=== PATIENT | male | born 1955 | race Caucasian/White ===

== ENCOUNTER → 2017-01-15 | Outpatient (CLI) | payer OTHER | LOC: FIMAGING 15:47 | PROVIDERS: ATTEND Internal Medicine | DX: M79.661 Pain in right lower leg (principal) ==

== ENCOUNTER → 2017-05-04 | Outpatient (CLI) | payer OTHER | LOC: FIMAGING 06:56 | PROVIDERS: ATTEND Internal Medicine Hepatology | DX: Q44.6 Cystic disease of liver (principal) ==

== ENCOUNTER 2017-12-22 07:04 | Emergency (ER) | payer OTHER ==
[2017-12-22 07:48] LABS: PLATELET COUNT 178 10^3/uL (150-400)
--- NOTE | 2017-12-22 07:50 | EDPHY ---
HPI/HX/ROS/PE/MDM Narrative: CHIEF COMPLAINT: Abnormal labs HPI: The patient is a 62 y/o male post liver and kidney transplants arriving at the referral of his PCP due to abnormal labs. He saw his PCP for evaluation of a long history of the sensation of an irregular heartbeat and occasional dyspnea and had routine labs performed. He received a phone call this morning alerting him that his creatinine was 2.9 and BUN 66 and was advised to go to the ED for more lab work. He has been exercising a lot this week in the heat and went hiking on Sunday. 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 He feels mildly fatigued, but otherwise denies acute symptoms. REVIEW OF SYSTEMS: Aside from elements discussed in the HPI, a comprehensive 10-point review of systems was reviewed and is negative. 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 Employed. PCP: Dr. Russell, Wallboard Worker: Dr. Hewitt. PHYSICAL EXAM: General:Patient is alert, in no acute distress. ENT:Eyes are normal to inspection. ENT inspection normal. Neck: Normal inspection. Full range of motion. Respiratory:No respiratory distress. Breath sounds normal bilaterally. Cardiovascular: Regular rate and rhythm. Strong peripheral pulses. Normal cap refill. Abdomen:The abdomen is nontender to palpation. There are no peritoneal signs. Back: Normal to inspection. No tenderness to palpation. Skin: Normal color. No rash. Warm and dry. Extremities: Normal appearance. Full range of motion. Neuro: Oriented x3. Normal motor function. Normal sensory function. ED Course: This is a 62 y/o male post liver and kidney transplants who presents for lab rechecks after he was alerted to elevated creatinine (2.9) and BUN (66). Apart from mild fatigue, he denies acute symptoms. Plan for IV, labs. Then will update his doctors at his request. Labs show creatinine of 2.7 and BUN of 67 today. Transplant group paged. Consulted with Dr. Chaudhari, transplant fellow at [facility]. She recommends holding his torsemide medication until Sunday when he follows up with their group. Reevaluated patient and discussed recommendations. He is comfortable with plan for discharge. - Data Points Laboratory Results: Laboratory Results 12/22/17 07:38 12/22/17 07:38 12/22/17 12/22/17 12/22/17 07:38 07:38 07:38 WBC 7.53 10^3/uL 10^3/uL (3.80-9.50) RBC 4.47 10^6/uL 10^6/uL (4.40-6.38) Hgb 13.5 g/dL L g/dL (13.7-17.5) Hct 41.6 % % (40.0-51.0) MCV 93.1 fL fL (81.5-99.8) MCH 30.2 pg pg (27.9-34.1) MCHC 32.5 g/dL g/dL (32.4-36.7) RDW 13.3 % % (11.5-15.2) Plt Count 178 10^3/uL 10^3/uL (150-400) MPV 10.9 fL fL (8.7-11.7) Neut % (Auto) 70.8 % % (39.3-74.2) Lymph % (Auto) 17.4 % % (15.0-45.0) [place] % (Auto) 6.0 % % (4.5-13.0) Eos % (Auto) 4.8 % % (0.6-7.6) Baso % (Auto) 0.5 % % (0.3-1.7) Nucleat RBC Rel Count 0.0 % % (0.0-0.2) Absolute Neuts (auto) 5.33 10^3/uL 10^3/uL (1.70-6.50) Absolute Lymphs (auto) 1.31 10^3/uL 10^3/uL (1.00-3.00) Absolute Monos (auto) 0.45 10^3/uL 10^3/uL (0.30-0.80) Absolute Eos (auto) 0.36 10^3/uL 10^3/uL (0.03-0.40) Absolute Basos (auto) 0.04 10^3/uL 10^3/uL (0.02-0.10) Absolute Nucleated RBC 0.00 10^3/uL 10^3/uL (0-0.01) Immature Gran % 0.5 % % (0.0-1.1) Immature Gran # 0.04 10^3/uL 10^3/uL (0.00-0.10) Sodium 143 mEq/L mEq/L (135-145) Potassium 4.5 mEq/L mEq/L (3.5-5.2) Chloride 108 mEq/L mEq/L (97-110) Carbon Dioxide 19 mEq/l L mEq/l (22-31) Anion Gap 16 mEq/L mEq/L (8-16) BUN 67 mg/dL H mg/dL (7-23) Creatinine 2.7 mg/dL H mg/dL (0.7-1.3) Estimated GFR 24 Glucose 90 mg/dL mg/dL (70-100) Calcium 9.1 mg/dL mg/dL (8.5-10.4) Urine Color YELLOW Urine Appearance CLEAR Urine pH 5.0 (5.0-7.5) Ur Specific [place] 1.011 (1.002-1.030) Urine Protein NEGATIVE (NEGATIVE) Urine Ketones NEGATIVE (NEGATIVE) Urine Blood NEGATIVE (NEGATIVE) Urine Nitrate NEGATIVE (NEGATIVE) Urine Bilirubin NEGATIVE (NEGATIVE) Urine Urobilinogen NEGATIVE EU EU (0.2-1.0) Ur Leukocyte Esterase NEGATIVE (NEGATIVE) Urine Glucose NEGATIVE (NEGATIVE) General Initial Vital Signs: Initial Vital Signs Temperature (C) 36.5 C 12/22/17 07:06 Heart Rate 84 12/22/17 07:06 Respiratory Rate 18 12/22/17 07:06 Blood Pressure 148/92 H 12/22/17 07:06 O2 Sat (%) 94 12/22/17 07:06 O2 Delivery Mode Room Air Allergies/Adverse Reactions: Sulfa (Sulfonamide Antibiotics) Allergy (Intermediate, Verified 12/22/17 07:06) Hives Home Medications: Medication Instructions Recorded ALLOPURINOL 200 mg PO DAILY 06/21/15 LISINOPRIL 10 mg PO DAILY@08 06/21/15 Mycophenolate Mofetil [Cellcept 500 mg PO BID 06/21/15 500 mg] PREDNISONE 5 mg PO DAILY 06/21/15 Tacrolimus [Prograf] 1 mg PO Q12H 12/22/17 Ursodiol [Actigall 300MG (*)] 300 mg PO BID 12/22/17 Warfarin Sodium [Coumadin 5MG (*)] 5 mg PO DAILY16 12/22/17 Departure - Departure Disposition: Home, Routine, Self-Care Clinical Impression: Elevated serum creatinine, Elevated BUN Condition: Good Instructions: Impaired Kidney Function (ED) Additional Instructions: Do not take your torsemide until your follow up appointment with transplant group on Sunday. Return to the ED for any worsening of condition. Referrals: Elizabeth Russell MD [Primary Care Provider] - As per Instructions Report Scribed for: Albino Galan Report Scribed by: Lorraine Osman Date of Report: 12/22/17 Time of Report: 07:50 Physician Review and Approval Statement: Portions of this note were transcribed by an ED scribe. I personally performed the history, physical exam, and medical decision making; and confirm the accuracy of the information in the transcribed note.
[2017-12-22 09:15] VITALS: BP 135/79
== END 2017-12-22 09:14 | disposition home or self-care (01) ==
DX: R79.89 Other specified abnormal findings of blood chemistry (principal)
CPT/HCPCS: 80197-90

== ENCOUNTER → 2018-09-16 | Outpatient (CLI) | payer OTHER | LOC: BMCIMAGING 15:02 | PROVIDERS: ATTEND Internal Medicine | DX: Z13.820 Encounter for screening for osteoporosis (principal); M81.0 Age-related osteoporosis without current pathological fracture ==